=== PATIENT | female | born 1995 | race Caucasian/White ===

== ENCOUNTER 2017-09-10 11:20 | Emergency (ER) | payer SELFPAY, OTHER ==
[2017-09-10] MEDS: diphenhydrAMINE INJ 50MG/ML VIAL (J1200) IV (12:21)
[2017-09-10] MEDS: KETOROLAC 30 MG/ML VIAL (J1885) IV (12:22)
[2017-09-10] MEDS: METOCLOPRAMIDE INJ 10MG/2ML VIAL (J2765) IV (12:24)
[2017-09-10] MEDS: NS 1,000 ML IV (12:27)
== END 2017-09-10 13:44 | disposition home or self-care (01) ==
LOC: M ED 11:20
DX: G44.209 Tension-type headache, unspecified, not intractable (principal); F33.9 Major depressive disorder, recurrent, unspecified; F41.9 Anxiety disorder, unspecified; Z98.890 Other specified postprocedural states
CPT/HCPCS: J1200